=== PATIENT | female | born 1985 | race Caucasian/White ===

== ENCOUNTER 2018-08-12 08:30 | Observation (INO) | payer OTHER ==
[2018-08-12] MEDS ORDERED: OXYTOCIN 30 UNITS/LACT RINGERS 500 ML IV ONE (08:46)
[2018-08-12] MEDS ORDERED: RINGERS SOLUTION,LACTATED 1,000 ML IV PRN (08:46)
[2018-08-12] MEDS ORDERED: CITRIC ACID/SODIUM CITRATE 30 ML SOLUTION UDCUP PO PRN (09:00)
[2018-08-12] MEDS ORDERED: METOCLOPRAMIDE HCL 5 MG/ML 2 ML VIAL IVP PRN (09:00)
[2018-08-12] MEDS ORDERED: METHYLERGONOVINE MALEATE 0.2 MG/ML VIAL IM PRN (09:00)
[2018-08-12] MEDS ORDERED: FentaNYL CITRATE-PF 100 MCG/2 ML VIAL IVP PRN (09:00)
[2018-08-12] MEDS ORDERED: LIDOCAINE/PF 1% 30 ML VIAL INJ PRN (09:00)
[2018-08-12] MEDS: RINGERS SOLUTION,LACTATED 1,000 ML IV SCH ×3 (09:26→22:15)
[2018-08-12 09:36] LABS: BASOPHILS % (AUTO) 1.2 % (0.0-2.0); HEMATOCRIT 38.3 % (36-46); LYMPHOCYTES # (AUTO) 2.4 K/uL (1.0-4.8); LYMPHOCYTES % (AUTO) 29.7 % (22.0-44.0); MEAN CORPUSCULAR HEMOGLOBIN 28.8 pg (26.0-34.0); MEAN CORPUSCULAR HGB CONC 33.9 G/dL (31.0-37.0); MEAN CORPUSCULAR VOLUME 85 fL (80-100); MONOCYTES # (AUTO) 0.5 K/uL (0.1-1.0); MONOCYTES % (AUTO) 6.4 % (2.0-9.0); NEUTROPHILS # (AUTO) 4.9 K/uL (1.8-7.7); NEUTROPHILS % (AUTO) 61.7 % (40.0-70.0); PLATELET COUNT (AUTO) 173 K/uL (150-450); RED BLOOD CELL COUNT(AUTO) 4.51 MIL/uL (4.00-5.20); RED CELL DISTRIBUTION WIDTH 14.1 % (11.5-14.5)
[2018-08-12 09:48] VITALS: BP 120/78
[2018-08-12] MEDS ORDERED: DINOPROSTONE 10 MG VAGINAL SUPPOSITORY VG ONE (10:15)
[2018-08-12] MEDS ORDERED: PREN1TAB80 PO (11:34)
[2018-08-12] MEDS ORDERED: OXYGEN THERAPY IH SCH (20:00)
[2018-08-12] MEDS ORDERED: -PHARMACY NOTE- MISC ONE (22:15)
[2018-08-13] MEDS ORDERED: RINGERS SOLUTION,LACTATED 1,000 ML IV SCH (00:15)
[2018-08-13] MEDS ORDERED: MISOPROSTOL 25 MCG TABLET VG ONE (00:15)
[2018-08-13] MEDS ORDERED: OXYTOCIN 30 UNITS/LACT RINGERS 500 ML IV PRN (00:17)
[2018-08-13] MEDS ORDERED: MISOPROSTOL 25 MCG TABLET PO ONE (00:20)
[2018-08-13] MEDS: RINGERS SOLUTION,LACTATED 1,000 ML IV SCH (06:01)
== END 2018-08-13 08:15 | disposition home or self-care (01) ==
LOC: 4S 08:30 → OBSVTOIN 08:30 → INTOOBSV 08:30 → UNDODISIN 08-13 08:15
PROVIDERS: ADMIT Obstetrics & Gynecology; ATTEND Obstetrics & Gynecology
DX: O48.0 Post-term pregnancy (principal); O26.893 Other specified pregnancy related conditions, third trimester; R10.30 Lower abdominal pain, unspecified; Z3A.41 41 weeks gestation of pregnancy
CPT/HCPCS: 36415; 85025; 86850; 86900; 86901; 96365; 96366; G0378 ×2; J2590; J7120 ×2

== ENCOUNTER 2018-08-13 16:53 | Observation (INO) | payer OTHER ==
[~2018-08-13] VITALS: Ht 167.6 cm; Wt 96.6 kg
[~2018-08-13 16:53] MED LIST: PREN1TAB80 PO
[2018-08-13] MEDS ORDERED: RINGERS SOLUTION,LACTATED 1,000 ML IV ONE (17:15)
[2018-08-13] MEDS ORDERED: RINGERS SOLUTION,LACTATED 1,000 ML IV PRN (17:22)
[2018-08-13] MEDS ORDERED: RINGERS SOLUTION,LACTATED 1,000 ML IV SCH (17:22)
[2018-08-13] MEDS ORDERED: OXYTOCIN 30 UNITS/LACT RINGERS 500 ML IV ONE (17:22)
[2018-08-13] MEDS ORDERED: LIDOCAINE/PF 1% 30 ML VIAL INJ PRN (17:30)
[2018-08-13] MEDS ORDERED: METOCLOPRAMIDE HCL 5 MG/ML 2 ML VIAL IVP PRN (17:30)
[2018-08-13] MEDS ORDERED: CITRIC ACID/SODIUM CITRATE 30 ML SOLUTION UDCUP PO PRN (17:30)
[2018-08-13] MEDS ORDERED: FentaNYL CITRATE-PF 100 MCG/2 ML VIAL IVP PRN (17:30)
[2018-08-13] MEDS ORDERED: METHYLERGONOVINE MALEATE 0.2 MG/ML VIAL IM PRN (17:30)
[2018-08-13 18:05] VITALS: BP 127/75
[2018-08-13] MEDS ORDERED: OXYGEN THERAPY IH SCH (20:00)
== END 2018-08-13 19:20 | disposition home or self-care (01) ==
LOC: OBSVTOIN 16:53 → 4S 16:53 → INTOOBSV 16:53
PROVIDERS: ADMIT Obstetrics & Gynecology; ATTEND Obstetrics & Gynecology
DX: O48.0 Post-term pregnancy (principal); Z3A.41 41 weeks gestation of pregnancy
CPT/HCPCS: J7120

== ENCOUNTER 2018-08-16 07:26 | Inpatient (IN) | payer OTHER ==
[~2018-08-16] VITALS: Ht 168 cm; Wt 96.6 kg
[2018-08-16 07:53] VITALS: BP 125/75
[2018-08-16 07:57] VITALS: BP 125/75
[2018-08-16] MEDS ORDERED: OXYTOCIN 30 UNITS/LACT RINGERS 500 ML IV ONE (08:33)
[2018-08-16] MEDS ORDERED: OXYTOCIN 30 UNITS/LACT RINGERS 500 ML IV PRN (08:33)
[2018-08-16] MEDS ORDERED: RINGERS SOLUTION,LACTATED 1,000 ML IV ONE (08:33)
[2018-08-16] MEDS ORDERED: LIDOCAINE/PF 1% 30 ML VIAL INJ PRN (08:45)
[2018-08-16 09:04] LABS: BASOPHILS % (AUTO) 0.9 % (0.0-2.0); EOSINOPHILS % (AUTO) 0.6 % (1.0-6.0); HEMATOCRIT 35.5 % (36-46); HEMOGLOBIN 11.9 g/dL (12.0-16.0); LYMPHOCYTES # (AUTO) 2.5 K/uL (1.0-4.8); LYMPHOCYTES % (AUTO) 33.5 % (22.0-44.0); MEAN CORPUSCULAR HEMOGLOBIN 28.5 pg (26.0-34.0); MEAN CORPUSCULAR HGB CONC 33.6 G/dL (31.0-37.0); MEAN CORPUSCULAR VOLUME 85 fL (80-100); MONOCYTES # (AUTO) 0.5 K/uL (0.1-1.0); MONOCYTES % (AUTO) 7.1 % (2.0-9.0); NEUTROPHILS # (AUTO) 4.3 K/uL (1.8-7.7); NEUTROPHILS % (AUTO) 57.9 % (40.0-70.0); PLATELET COUNT (AUTO)-OB 156 K/uL (150-450); RED BLOOD CELL COUNT(AUTO) 4.18 MIL/uL (4.00-5.20); RED CELL DISTRIBUTION WIDTH 13.8 % (11.5-14.5)
[2018-08-16] MEDS: RINGERS SOLUTION,LACTATED 1,000 ML IV SCH ×2 (09:58→17:04)
[2018-08-16 10:35] VITALS: BP 125/75
[2018-08-16] MEDS ORDERED: FentaNYL CITRATE-PF 100 MCG/2 ML VIAL IVP ONE (16:00)
[2018-08-16] MEDS ORDERED: FentaNYL CITRATE-PF 100 MCG/2 ML VIAL ONE (16:03)
[2018-08-16] MEDS ORDERED: LIDOCAINE/PF 2% 5 ML VIAL ONE (16:04)
[2018-08-16] MEDS ORDERED: ROPIVACAINE HCL/PF 0.2% 100 ML ED ONE (16:04)
[2018-08-16] MEDS ORDERED: ROPIVACAINE HCL/PF 0.2% 100 ML ED PRN (16:30)
[2018-08-16] MEDS ORDERED: NALBUPHINE HCL 10 MG/ML VIAL IVP PRN (16:30)
[2018-08-16] MEDS ORDERED: DiphenhydrAMINE HCL 50 MG/ML VIAL IVP PRN (16:30)
[2018-08-16] MEDS ORDERED: ONDANSETRON HCL 4 MG/2 ML VIAL IVP PRN (16:30)
[2018-08-16] MEDS: AMPICILLIN SODIUM 2 GM/NS 100 ML IV SCH (23:38)
[2018-08-17] MEDS ORDERED: ACETAMINOPHEN 1000 MG/ISO-OSM 100 ML IV ONE (01:15)
[2018-08-17] MEDS ORDERED: GENTAMICIN 120 MG/NACL ISO-OSM 100 ML IV ONE (01:30)
[2018-08-17] MEDS: RINGERS SOLUTION,LACTATED 1,000 ML IV SCH (04:40)
[2018-08-17] MEDS: AMPICILLIN SODIUM 2 GM/NS 100 ML IV SCH (05:07)
[2018-08-17] MEDS ORDERED: RINGERS SOLUTION,LACTATED 1,000 ML IV SCH (07:05)
[2018-08-17] MEDS ORDERED: OXYTOCIN 30 UNITS/LACT RINGERS 500 ML IV ONE ×2 (07:05)
[2018-08-17] MEDS ORDERED: RINGERS SOLUTION,LACTATED 1,000 ML IV PRN (07:05)
[2018-08-17] MEDS ORDERED: RINGERS SOLUTION,LACTATED 1,000 ML IV ONE ×2 (07:05→07:08)
[2018-08-17] MEDS ORDERED: IBUPROFEN 600 MG TABLET PO PRN ×2 (07:15)
[2018-08-17] MEDS ORDERED: MEASLES/MUMPS/RUBELLA VACCINE, LIVE 0.5 ML/VIAL SQ ONE ×3 (07:15)
[2018-08-17] MEDS ORDERED: TERBUTALINE SULFATE 1 MG/ML VIAL SQ PRN (07:15)
[2018-08-17] MEDS ORDERED: OxyCODONE HCL/ACETAMINOPHEN 5-325 MG TABLET PO PRN ×6 (07:15)
[2018-08-17] MEDS ORDERED: LANOLIN 7 GM OINTMENT TP PRN ×3 (07:15)
[2018-08-17] MEDS ORDERED: DiphenhydrAMINE HCL 50 MG/ML VIAL IVP PRN (07:15)
[2018-08-17] MEDS ORDERED: GLYCERIN/WITCH HAZEL LEAF 40 PADS JAR TP PRN ×3 (07:15)
[2018-08-17] MEDS ORDERED: LIDOCAINE/PF 1% 30 ML VIAL INJ PRN (07:15)
[2018-08-17] MEDS ORDERED: FentaNYL CITRATE-PF 100 MCG/2 ML VIAL IVP PRN (07:15)
[2018-08-17] MEDS ORDERED: ONDANSETRON HCL 4 MG/2 ML VIAL IVP PRN (07:15)
[2018-08-17] MEDS ORDERED: MISOPROSTOL 25 MCG TABLET VG SCH (07:15)
[2018-08-17] MEDS ORDERED: BENZOCAINE 20%/MENTHOL 56 GM SPRAY CANISTER TP PRN ×3 (07:15)
[2018-08-17] MEDS ORDERED: NALBUPHINE HCL 10 MG/ML VIAL IVP PRN (07:15)
[2018-08-17] MEDS ORDERED: MAGNESIUM HYDROXIDE SUSPENSION 30 ML UDCUP PO SCH ×2 (09:00)
[2018-08-17] MEDS: IBUPROFEN 600 MG TABLET PO PRN ×2 (12:10→21:00)
[2018-08-17] MEDS: MAGNESIUM HYDROXIDE SUSPENSION 30 ML UDCUP PO SCH (21:00)
[2018-08-18] MEDS ORDERED: GENTAMICIN 80 MG/NACL ISO-OSM 50 ML IV ONE (01:30)
[2018-08-18] MEDS ORDERED: *CLINICAL-GENTAMICIN DOSING CLINICAL ONE (08:30)
[2018-08-18] MEDS ORDERED: SODIUM CHLORIDE 0.9% 100 ML ONE (09:31)
[2018-08-18] MEDS: CLINDAMYCIN 900 MG/D5% WATER 50 ML IV SCH ×2 (09:40→17:16)
[2018-08-18 10:46] LABS: APPEARANCE,URINE CLEAR (CLEAR); BILIRUBIN,URINE NEGATIVE (NEGATIVE); GLUCOSE, URINE (UA) NEGATIVE (NEGATIVE); KETONES,URINE NEGATIVE (NEGATIVE); LEUKOCYTE ESTERASE ,URINE NEGATIVE (NEGATIVE); NITRATE,URINE NEGATIVE (NEGATIVE); OCCULT BLOOD,URINE LARGE (NEGATIVE); PROTEIN,URINE NEGATIVE (NEGATIVE); UROBILINOGEN,URINE 0.2 mg/dL (<=1.0)
[2018-08-18] MEDS: AMPICILLIN SODIUM 2 GM/NS 100 ML IV SCH ×3 (10:48→22:32)
[2018-08-18 10:50] LABS: WBC,URINE None Seen /HPF (0-5)
[2018-08-18 10:51] LABS: BACTERIA,URINE None Seen /HPF (None Seen); SQUAMOUS EPITHELIAL CELL,UR Rare /LPF (None Seen)
[2018-08-18 11:28] LABS: BASOPHILS % (AUTO) 0.7 % (0.0-2.0); EOSINOPHILS % (AUTO) 0.8 % (1.0-6.0); HEMATOCRIT 29.9 % (36-46); HEMOGLOBIN 10.2 g/dL (12.0-16.0); LYMPHOCYTES # (AUTO) 0.9 K/uL (1.0-4.8); LYMPHOCYTES % (AUTO) 12.6 % (22.0-44.0); MEAN CORPUSCULAR HEMOGLOBIN 29.1 pg (26.0-34.0); MEAN CORPUSCULAR HGB CONC 34.1 G/dL (31.0-37.0); MEAN CORPUSCULAR VOLUME 85 fL (80-100); MONOCYTES # (AUTO) 0.6 K/uL (0.1-1.0); MONOCYTES % (AUTO) 7.8 % (2.0-9.0); NEUTROPHILS # (AUTO) 5.8 K/uL (1.8-7.7); NEUTROPHILS % (AUTO) 78.1 % (40.0-70.0); PLATELET COUNT (AUTO)-OB 117 K/uL (150-450); RED BLOOD CELL COUNT(AUTO) 3.51 MIL/uL (4.00-5.20); RED CELL DISTRIBUTION WIDTH 14.3 % (11.5-14.5)
[2018-08-18] MEDS: GENTAMICIN 80 MG/NACL ISO-OSM 50 ML IV SCH ×2 (11:39→18:33)
[2018-08-18] MEDS: MAGNESIUM HYDROXIDE SUSPENSION 30 ML UDCUP PO SCH ×2 (12:53→20:58)
[2018-08-18] MEDS ORDERED: ACETAMINOPHEN 500 MG TABLET PO PRN (13:15)
[2018-08-18] MEDS: IBUPROFEN 600 MG TABLET PO PRN (20:59)
[2018-08-19] MEDS: CLINDAMYCIN 900 MG/D5% WATER 50 ML IV SCH ×2 (01:30→08:42)
[2018-08-19] MEDS: GENTAMICIN 80 MG/NACL ISO-OSM 50 ML IV SCH ×2 (02:30→11:36)
[2018-08-19] MEDS: AMPICILLIN SODIUM 2 GM/NS 100 ML IV SCH ×2 (04:33→10:55)
[2018-08-19] MEDS: MAGNESIUM HYDROXIDE SUSPENSION 30 ML UDCUP PO SCH (08:42)
[2018-08-19] MEDS ORDERED: FERR-89 PO (15:23)
[2018-08-19] MEDS ORDERED: IBUP-2070 PO (15:23)
== END 2018-08-19 17:35 | disposition home or self-care (01) | DRG 807 ==
LOC: 4S 07:26 → OBSVTOIN 07:26
PROVIDERS: ADMIT Obstetrics & Gynecology; ATTEND Obstetrics & Gynecology
PROC: 10E0XZZ Delivery of Products of Conception, External Approach (ICD-10-PCS; principal; 2018-08-17)
PROC: 0KQM0ZZ Repair Perineum Muscle, Open Approach (ICD-10-PCS; 2018-08-17)
PROC: 3E0R3BZ Introduction of Anesthetic Agent into Spinal Canal, Percutaneous Approach (ICD-10-PCS; 2018-08-17)
PROC: 00HU33Z Insertion of Infusion Device into Spinal Canal, Percutaneous Approach (ICD-10-PCS; 2018-08-17)
DX: O70.1 Second degree perineal laceration during delivery (principal); Z37.0 Single live birth; Z3A.41 41 weeks gestation of pregnancy
CPT/HCPCS: 86850; 86900; 86901; 87040; 87086; J0131; J0290; J1580; J2590; J2795; J3010; J3490; J7050; J7120